=== PATIENT | male | born 1965 | race Caucasian/White ===

== ENCOUNTER → 2020-06-20 13:57 | Outpatient (BNVA) | payer OTHER, SELFPAY | PROVIDERS: PCP Family Medicine; Visit Provider Surgery | DX: Z11.59 Encounter for screening for other viral diseases (principal); K52.9 Noninfective gastroenteritis and colitis, unspecified | CPT/HCPCS: 87635 ==

== ENCOUNTER 2020-06-25 06:51 | Day surgery (SDC) | payer OTHER, SELFPAY ==
[2020-06-18 09:40] VITALS: BMI 23.1
[2020-06-25 07:10] VITALS: BMI 23.1
[2020-06-25 07:15] VITALS: BP 136/94; PULSE 78; RESP 18; TEMP 36.3; O2SAT 98
[2020-06-25] MEDS: sodium chloride 0.9% 1,000 ML 30 ML IV (07:25)
--- NOTE | 2020-06-25 07:49 | P.ANESASSM_ITS ---
Pre-Anesthetic Assessment Pre-Anesthetic Assessment: Height/Weight: Height 1.7 m Weight 67.132 kg Temp Pulse Resp BP Pulse Ox 97.3 F L 78 18 136/94 98 06/25/20 07:15 06/25/20 07:15 06/25/20 07:15 06/25/20 07:15 06/25/20 07:15 Preop Diagnosis: Nausea vomiting, chronic diarrhea Proposed Procedure: Operation Date: 06/20/20 10:00 Proposed Procedures p EGD/Colon 44529 [id number] K59.2 K21.9(Not Applicable) - Thomas Boone MD s Colonoscopy(Not Applicable) - Thomas Boone MD Operation Date: 06/25/20 09:00 Proposed Procedures p EGD(Not Applicable) - Thomas Boone MD s Colonoscopy(Not Applicable) - Thomas Boone MD Familial anesthetic complications: None (did feel chest tightness after his last esophageal dilation - procedure related Was Beta Logan taken within 24 hours: N/A Last intake: Intake Last Liquid Date 06/24/20 Last Liquid Time 23:30 Last Solid Date 06/24/20 Last Solid Time 12:00 Social: Social History: Alcohol and Tobacco Comment: 6 pack of beer on the [place] Exam: Pre-Anes Outpt Exam: alert, oriented x 3, clear to auscultation bilaterally and regular rate & rhythm Airway: Cervical ROM: WNL MP: 3 Dentition: Full Anesthetic Plan: ASA status: 2 Anesthesia: MAC Risk of > 500 ml blood loss (7ml/kg in children): No Meds/Allergies Current Medications: Current Medications Generic Name Dose Route Start Last Admin Trade Name Freq PRN Reason Stop Dose Admin Sodium Chloride 1,000 mls @ 30 ml s/hr 06/25/20 07:15 06/25/20 07:25 Sodium Chloride 0.9% IV 30 mls/hr .Q24H RENE Administration PFSH Anesthesia PFSH: Medical History Anxiety H/O fracture of leg surgical repair with hardware, left Surgical History H/O circumcision H/O esophagogastroduodenoscopy Status post right inguinal hernia repair Family History Father CAD (coronary artery disease) Diabetes Mother Cancer cervical Denies family history of Anesthesia complication Bleeding disorder Social History Smoking and tobacco status: current every day smoker Alcohol intake: current Alcohol intake frequency: few times a month Alcohol type: beer Household members: spouse Marital status: Current occupational status: employed History of recent travel: No Data Anesthesia Cardiac Studies: No Data to Display
--- NOTE | 2020-06-25 08:00 | W.PM.OPSUD ---
Surgery/Procedure H&P Update DATE OF PROCEDURE: June 25, 2020 DATE H&P PERFORMED: 06/14/20 H&P UPDATE INFORMATION: I have reviewed H&P completed within last 30 days, I have examined patient prior to procedure and No changes to prior documentation PREOP DIAGNOSIS: Nausea vomiting, chronic diarrhea PLANNED PROCEDURE: Operation Date: 06/20/20 10:00 Proposed Procedures p EGD/Colon [id number] K59.2 K21.9(Not Applicable) - Thomas Boone MD s Colonoscopy(Not Applicable) - Thomas Boone MD Operation Date: 06/25/20 09:00 Proposed Procedures p EGD(Not Applicable) - Thomas Boone MD s Colonoscopy(Not Applicable) - Thomas Boone MD
[2020-06-25 09:15] VITALS: BP 122/74; PULSE 52; RESP 14; TEMP 36.2; O2SAT 97
--- NOTE | 2020-06-25 09:45 | ANE.PACU2 ---
Inpatient post-anesthesia follow up: Airway intact: Yes Vital signs: Temperature 97.1 F Pulse Rate 52 Respiratory Rate 14 Blood Pressure 122/74 Pulse Oximetry 97 Oxygen Delivery Me thod Nasal Cannula Oxygen Flow Rate 3 Fraction of Inspir ed Oxygen Hydration adequate: Yes Nausea and vomiting: No Pain level: 1 Mental status: Baseline
== END 2020-06-25 09:45 | disposition home or self-care (01) ==
PROVIDERS: PCP Family Medicine; Visit Provider Surgery
PROC: 0DJ08ZZ Inspection of Upper Intestinal Tract, Via Natural or Artificial Opening Endoscopic (ICD-10-PCS; CPT 43235; principal; 2020-06-25 08:30)
PROC: 0DJD8ZZ Inspection of Lower Intestinal Tract, Via Natural or Artificial Opening Endoscopic (ICD-10-PCS; CPT 45378; 2020-06-25 08:30)
DX: K52.9 Noninfective gastroenteritis and colitis, unspecified (principal); K21.9 Gastro-esophageal reflux disease without esophagitis; R11.2 Nausea with vomiting, unspecified; D12.5 Benign neoplasm of sigmoid colon; K22.2 Esophageal obstruction; F17.210 Nicotine dependence, cigarettes, uncomplicated
CPT/HCPCS: 12345; 43239; 45380; 45385; 82274; 83630; 87493; 87506; 88305; J2704; J3010; J7030

== ENCOUNTER 2021-02-06 14:20 | Emergency (ER) | payer OTHER, SELFPAY ==
--- NOTE | 2021-02-06 14:55 | XR_ITS ---
WS: [id number] Exam: XR shoulder RT min 2V* [id number] Date/Time of Exam: 02/06/2021 2:56 PM Reason For Exam: injury No acute fracture or dislocation. Normal soft tissues. XR/XR shoulder RT min 2V* [id number] IMPRESSION: 1. Negative right shoulder.
[2021-02-06 15:43] VITALS: BP 170/105; PULSE 79; RESP 15; TEMP 36.3; O2SAT 97; BMI 23.5
== END 2021-02-06 15:55 | disposition left against medical advice (07) ==
PROVIDERS: Emergency Provider Family Medicine; Family Provider Family Medicine
DX: Z53.21 Procedure and treatment not carried out due to patient leaving prior to being seen by health care provider (principal)
CPT/HCPCS: 73030

== ENCOUNTER 2021-07-11 15:03 | Outpatient (CLI) | payer OTHER, SELFPAY ==
--- NOTE | 2021-07-11 15:11 | XR_ITS ---
WS: [id number] Exam: XR chest 2V* [id number] Date/Time of Exam: 07/11/2021 3:13 PM Reason For Exam: WHEEZING Comparison 05/29/2019. Findings: The lungs are clear and fully expanded. Costophrenic angles are sharp. No infiltrates. Bronchovascula r relief appears normal. Cardiac silhouette is unremarkable. Bony elements are intact. XR/XR chest 2V* [id number] IMPRESSION: Unremarkable chest radiograph.
== END 2021-07-11 15:04 | disposition home or self-care (01) ==
LOC: RAD 15:08
PROVIDERS: PCP Family Medicine; Visit Provider Family Medicine
DX: R06.2 Wheezing (principal); R05.3 Chronic cough
CPT/HCPCS: 71046

== ENCOUNTER 2023-09-28 13:15 | Emergency (ER) | payer OTHER, SELFPAY ==
[2023-09-28 13:47] VITALS: BP 155/85; PULSE 72; RESP 14; TEMP 36.9; O2SAT 96; BMI 23.5
--- NOTE | 2023-09-28 14:27 | ED_ITS ---
HPI - Ear Problem 2 General: Chief complaint: Ear Stated complaint: right ear pain Time Seen by Provider: 09/28/23 13:34 Source: patient Mode of arrival: ambulatory Limitations: no limitations History of Present Illness: Patient is a nice 58-year-old male who presents to ED today with a right ear complaint. Patient tells me yesterday he was boiling potatoes in water and when he went to drain the water it accidentally splashed into his right ear. He states he did have a small amount of blistering just outside of the ear canal that has sloughed off. He states since then his balance has been off , he has had muffled sounds in the ear, and has had pain. MD Complaint: ear pain Location: right ear Duration: constant Severity: mild Relieving factors: nothing Exacerbating factors: nothing Context: trauma Discharge from ear: no Associated symptoms: Reports no associated symptoms and ear or mastoid pain; Denies tinnitus Treatment prior to arrival: none Review of Systems 2 ENMT: Reports: ear or mastoid pain, change in hearing and disequilibrium; Denies: ear discharge or tinnitus GI: Denies: nausea or vomiting PFSH ED 2 PFSH: Medical History Anxiety H/O fracture of leg surgical repair with hardware, left Surgical History Status post right inguinal hernia repair H/O circumcision H/O esophagogastroduodenoscopy Family History Father CAD (coronary artery disease) Diabetes Mother Cancer cervical Denies family history of Anesthesia complication Bleeding disorder Social History Smoking and tobacco/nicotine status: current every day tobacco/nicotine user Alcohol intake: current Alcohol intake frequency: few times a month Alcohol type: beer Household members: spouse Marital status: Current occupational status: employed Physical Exam 2 Const: COMMON NORMALS: no acute distress, average body habitus, no limitations, healthy appearing, alert and well nourished HENMT: FACE & SINUS: normal facial exam EXTERNAL EAR: Yes mastoids normal and Yes no periauricular adenopathy EXTERNAL AUDITORY CANAL: Abnormal EAC present (see below) EAC laterality: right TYMPANIC MEMBRANE: TM normal on the left and TM abnormal (intact; it is erythematous with scattered crystalline appearing formations) EAR IMAGES: 1. 2. superficial burn; sloughed blister Neuro: SENSORIUM/ORIENTATION: Yes alert Course 2 Vital Signs: Vital signs: Vital Signs Temperature 98.5 F 09/28/23 13:47 Pulse Rate 76 09/28/23 14:45 Respiratory Rate 16 09/28/23 14:45 Blood Pressure 155/85 09/28/23 13:47 Pulse Oximetry 99 09/28/23 14:45 Oxygen Delivery Me thod Room Air 09/28/23 13:47 MDM - Ear Medical Decision Making Patient here with a mild thermal burn to R EAC and TM. Will cover for infection with otic drops. Will avoid steroids as I don't think he'll receive any additional benefit from those and have him follow up with ENT as he does complain of pain, dizziness, and muffled noises. Return to ED precautions given. No radiology studies performed this visit Discharge Plan Discharge Patient Disposition: Home Clinical Impression: Burn of ear drum Qualifiers: Encounter type: initial encounter Laterality: right Qualified Code(s): T28.411A - Burn of right ear drum, initial encounter Condition: Stable Prescriptions: New ofloxacin 0.3 % drops 10 drp otic (ear) DAILY 7 Days Qty: 5 0RF No Action paroxetine HCl [Paxil] 20 mg tablet 20 mg PO DAILY prednisone 20 mg tablet 20 mg PO DAILY 10 Days Qty: 10 0RF pantoprazole 40 mg tablet,delayed release (DR/EC) See Rx Instructions .ROUTE .COMPLEX Qty: 45 0RF Dose Instruction: TAKE 1 TABLET BY MOUTH ONCE DAILY FOR 6 WEEKS Rx Instructions: TAKE 1 TABLET BY MOUTH ONCE DAILY FOR 6 WEEKS Discharge Orders: Discharge ED (Routine); Ordered 09/28/23 Ordered By: Deisy Chowdary Referrals: Ajith Warner MD [Primary Care Provider] - Activity Restrictions/Additional Instructions: As we discussed we will have you follow-up with ENT for further evaluation and treatment if indicated. Your antibiotic drops have been E scripted to your pharmacy on file. Coding Level of Care Code ED Spring Bender for Jun Muñiz
[2023-09-28 14:45] VITALS: PULSE 76; RESP 16; O2SAT 99
--- NOTE | 2023-09-29 08:38 | DCPLANNER ---
Message sent to ENT for follow up appointment - Ear pain- boiling water in ear canal.
== END 2023-09-28 14:46 | disposition home or self-care (01) ==
PROVIDERS: Emergency Provider Physician Assistant; PCP Family Medicine
DX: T28.411A Burn of right ear drum, initial encounter (principal); X12.XXXA Contact with other hot fluids, initial encounter; Y93.G3 Activity, cooking and baking; R42 Dizziness and giddiness
CPT/HCPCS: 99283

== ENCOUNTER → 2024-01-06 10:50 | Outpatient (BNVA) | payer OTHER, SELFPAY | PROVIDERS: PCP Family Medicine; Visit Provider Family Medicine | DX: R03.0 Elevated blood-pressure reading, without diagnosis of hypertension (principal) | CPT/HCPCS: 80053; 80061; 84439; 84443; 85025 ==

== ENCOUNTER → 2024-05-11 08:29 | Outpatient (BNVA) | payer OTHER, SELFPAY | PROVIDERS: PCP Family Medicine; Visit Provider Family Medicine | DX: R53.83 Other fatigue (principal) | CPT/HCPCS: 80053; 84403; 85025 ==

== ENCOUNTER 2025-03-08 10:12 | Outpatient (CLI) | payer SELFPAY ==
--- NOTE | 2025-03-08 10:00 | CT_ITS ---
WS: [id number] LDCT LUNG CANCER SCREENING HISTORY: screening TECHNIQUE: Axial imaging performed from the apices to 1 cm below the costophrenic angles. Coronal and sagittal reformats are submitted with axial MIP series. All CT scans at [facility] use at least one of these dose optimization techniques: automated exposure control; mA and/or kV adjustment per patient size (includes targeted exams where dose is matched to clinical indication); or iterative reconstruction. DLP: 55.89 mGy.cm DIvol: Mean CTDIvol: 1.00 (mGy) COMPARISON: None available. Diagnostic quality: Satisfactory Lungs: No pulmonary mass or nodule. No endobronchial lesions. Heart: Normal size heart with no pericardial effusion.. Other findings: No pathologically enlarged lymph nodes. Minimal atherosclerosis aorta. Normal size pulmonary artery. Normal adrenal glands. CT/CT lung screening [id number] IMPRESSION: LUNG-RADS: 1-Negative FOLLOW UP: 12 Month: Continue annual screening with LDCT OTHER FINDINGS (S MODIFIER): None.
== END 2025-03-08 10:13 | disposition home or self-care (01) ==
LOC: RAD 10:13
PROVIDERS: PCP Family Medicine; Visit Provider Family Medicine
DX: Z12.2 Encounter for screening for malignant neoplasm of respiratory organs (principal); F17.219 Nicotine dependence, cigarettes, with unspecified nicotine-induced disorders
CPT/HCPCS: 71271

== ENCOUNTER → 2025-08-27 15:57 | Outpatient (BNVA) | payer MEDICAID, SELFPAY | PROVIDERS: PCP Family Medicine; Visit Provider Family Medicine | DX: I10 Essential (primary) hypertension (principal) | CPT/HCPCS: 80053; 80061; 83036; 84439; 84443; 85025 ==